=== PATIENT | male | born 2000 | race Caucasian/White ===

== ENCOUNTER 2022-06-20 09:32 | Inpatient (IN) | payer OTHER ==
[~2022-06-20] VITALS: Ht 177.8 cm; Wt 93.0 kg
[2022-06-20 10:52] LABS: HEMATOCRIT 47.4 % (42.0-52.0); HEMOGLOBIN 15.9 g/dl (13.5-17.5); MEAN CORPUSCULAR HEMOGLOBIN 31.9 pg (27.0-33.0); MEAN CORPUSCULAR HGB CONC 33.5 g/dl (32.0-36.5); PLATELET COUNT, AUTOMATED 367 10^3/uL (150-450); RED BLOOD COUNT 4.99 10^6/uL (4.30-6.10); WHITE BLOOD COUNT 7.9 10^3/uL (4.0-10.0)
[2022-06-20 11:04] LABS: AMPHETAMINES LEVEL URINE NEGATIVE (NEGATIVE); BARBITURATES URINE NEGATIVE (NEGATIVE); BENZODIAZEPINES URINE NEGATIVE (NEGATIVE); COCAINE METABOLITE URINE NEGATIVE (NEGATIVE); METHADONE URINE NEGATIVE (NEGATIVE)
[2022-06-20 11:05] LABS: CANNABINOIDS URINE NEGATIVE (NEGATIVE); OPIATES URINE NEGATIVE (NEGATIVE); PHENCYCLIDINE URINE NEGATIVE (NEGATIVE)
[2022-06-20 11:06] LABS: ACETAMINOPHEN LEVEL < 2.0 UG/ML (10.0-20.0)
[2022-06-20 11:07] LABS: ALBUMIN 4.9 G/DL (3.2-5.2); ALKALINE PHOSPHATASE 87 U/L (46-116); ALT/SGPT 79 U/L (7.0-40); AST/SGOT 37 U/L (<34); BILIRUBIN,DIRECT 0.1 MG/DL (<0.4); BILIRUBIN,TOTAL 0.3 MG/DL (0.3-1.2); BLOOD UREA NITROGEN 15 MG/DL (9-23); CALCIUM LEVEL 10.2 MG/DL (8.5-10.1); CARBON DIOXIDE LEVEL 30 MMOL/L (20-31); CHLORIDE LEVEL 104 MMOL/L (98-107); CREATININE FOR GFR 1.07 MG/DL (0.70-1.30); GLOMERULAR FILTRATION RATE > 60.0 (>60); GLUCOSE, FASTING 94 MG/DL (60-100); POTASSIUM SERUM 4.6 MMOL/L (3.5-5.1); SALICYLATE LEVEL < 3.0 MG/DL (<30); SODIUM LEVEL 142 MMOL/L (136-145); TOTAL PROTEIN 7.6 G/DL (5.7-8.2)
[2022-06-20 11:09] LABS: THYROID STIMULATING HORMONE 3.412 uIU/ML (0.55-4.78)
[2022-06-20] MEDS ORDERED: MELA2.5C4 PO (19:12)
[2022-06-20] MEDS ORDERED: STROTAB3 PO (19:12)
[2022-06-20] MEDS ORDERED: HOME MED LIST COMPLETE! XX SCH (19:15)
[2022-06-21] MEDS ORDERED: MAALOX 30 ML SUSP *UDC PO PRN (09:50)
[2022-06-21] MEDS ORDERED: ACETAMINOPHEN TAB 650MG DOSE (2X325MG) PO PRN (09:50)
[2022-06-21] MEDS ORDERED: MOM 30ML SUSPENSION UDC PO PRN (09:50)
[2022-06-21] MEDS ORDERED: traZODone 50 MG TAB PO PRN (09:50)
[2022-06-21] MEDS: NICOTINE 21MG/24HR 1 EA TRANSDERMAL TD SCH (16:03)
[2022-06-21 16:35] VITALS: BP 128/85
[2022-06-22 06:21] VITALS: BP 107/57
[2022-06-22] MEDS: NICOTINE 21MG/24HR 1 EA TRANSDERMAL TD SCH (08:37)
[2022-06-22] MEDS: SERTRALINE HCL 50 MG TAB PO SCH (11:18)
[2022-06-22 16:09] VITALS: BP 127/70
[2022-06-22 17:12] LABS: HEPATITIS B SURFACE ANTIGEN NEGATIVE (NEGATIVE)
[2022-06-22 17:42] LABS: ALBUMIN 4.9 G/DL (3.2-5.2); ALKALINE PHOSPHATASE 85 U/L (46-116); ALT/SGPT 75 U/L (7.0-40); AST/SGOT 32 U/L (<34); BILIRUBIN,DIRECT 0.2 MG/DL (<0.4); BILIRUBIN,TOTAL 0.5 MG/DL (0.3-1.2); TOTAL PROTEIN 7.3 G/DL (5.7-8.2)
[2022-06-22 19:02] LABS: HEPATITIS B CORE ANTIBODY IGM NEGATIVE (NEGATIVE)
[2022-06-23 06:31] VITALS: BP 114/53
[2022-06-23] MEDS: SERTRALINE HCL 50 MG TAB PO SCH (08:14)
[2022-06-23] MEDS: NICOTINE 21MG/24HR 1 EA TRANSDERMAL TD SCH (08:14)
[2022-06-23 18:15] VITALS: BP 143/85
[2022-06-24 06:20] VITALS: BP 110/64
[2022-06-24] MEDS: SERTRALINE HCL 50 MG TAB PO SCH (09:13)
[2022-06-24] MEDS: NICOTINE 21MG/24HR 1 EA TRANSDERMAL TD SCH (09:13)
[2022-06-24 16:23] VITALS: BP 122/71
[2022-06-25 06:18] VITALS: BP 113/64
[2022-06-25] MEDS: SERTRALINE HCL 50 MG TAB PO SCH (08:14)
[2022-06-25] MEDS: NICOTINE 21MG/24HR 1 EA TRANSDERMAL TD SCH (08:14)
[2022-06-25 16:36] VITALS: BP 127/61
[2022-06-26 06:48] VITALS: BP 116/65
[2022-06-26] MEDS: NICOTINE 21MG/24HR 1 EA TRANSDERMAL TD SCH (10:02)
[2022-06-26] MEDS: SERTRALINE HCL 50 MG TAB PO SCH (10:02)
[2022-06-26 16:12] VITALS: BP 140/68
[2022-06-27 06:08] VITALS: BP 112/70
[2022-06-27] MEDS: SERTRALINE HCL 50 MG TAB PO SCH (07:41)
[2022-06-27] MEDS: NICOTINE 21MG/24HR 1 EA TRANSDERMAL TD SCH (07:41)
[2022-06-27] MEDS ORDERED: SERT50TA29 PO (08:56)
== END 2022-06-27 13:00 | disposition home or self-care (01) | DRG 881 ==
LOC: M ED 09:32 → M ED INP 06-21 09:46 → M PSY 06-21 12:03
PROVIDERS: ADMIT Student in an Organized Health Care Education/Training Program; ATTEND Psychiatry & Neurology Psychiatry
DX: F32.A Depression, unspecified (principal); F43.21 Adjustment disorder with depressed mood; Z91.51 Personal history of suicidal behavior; F17.290 Nicotine dependence, other tobacco product, uncomplicated; R74.01 Elevation of levels of liver transaminase levels